=== PATIENT | female | born 1945 | race Caucasian/White ===

== ENCOUNTER 2021-12-23 18:53 | Emergency (ER) | payer MEDICARE, SELFPAY ==
--- NOTE | ~2021-12-23 | XR_ITS ---
XR tibia fibula LT 2V DATE: 12/23/2021 19:22 INDICATION: Injury 3 days ago. Bruising and pain at posterior mid lower leg TECHNIQUE: AP and lateral views COMPARISON: 08/02/2018 left knee, left ankle FINDINGS: There is soft tissue irregularity along the posteromedial mid and lower leg and moderate sw elling of the left lower leg. There is osteopenia. No fracture or dislocation, periosteal reaction or bone destruction of the tibia or fibula is evident . Normal alignment at the knee and ankle joints. IMPRESSION: Moderate soft tissue swelling of the left lower leg Focal soft tissue irregularity along the posteromedial mid lower leg Osteopenia No fracture or dislocation or bone destruction Reviewed, dictated and finalized at location A.
--- NOTE | 2021-12-23 18:57 | ED.LOWEXIN ---
HPI - Extremity Injury (Lower) General Chief Complaint: Extremity Injury, Lower Stated Complaint: Left leg injury Time Seen by Provider: 12/23/21 18:57 Source: patient and RN notes reviewed History of Present Illness HPI Narrative: Patient is 76-year-old female who presents the urgent care with her daughter with complaints of left leg injury. Patient states that on Wednesday she dropped a large TV on her left lower leg hitting her calf and ankle. Patient states that the pain and swelling seem to go down. However today she drove 12 hours to [place] and back with her leg hanging down. Patient states that now she has had increased pain and swelling. Patient is on a blood thinner but denies of any history of DVT. Patient states that she now has a blister to the area as well. Denies of any shortness of breath or chest pain. Patient has been ambulating with increased pain on the leg. No other acute injuries from the incident. No acute distress noted. Patient read the plan of care. Some parts of this dictation were generated by voice recognition software and may contain typographical and/or grammatical inaccuracies. Related Data Home Medications Medication Instructions Recorded Confirmed atorvastatin 40 mg PO DAILY 12/23/21 12/23/21 clopidogrel [Plavix] 75 mg PO DAILY 12/23/21 12/23/21 furosemide 20 mg PO DAILY 12/23/21 12/23/21 levothyroxine 88 mcg PO DAILY 12/23/21 12/23/21 oxybutynin chloride 10 mg PO DAILY 12/23/21 12/23/21 pantoprazole 40 mg PO HS 12/23/21 12/23/21 spironolactone 25 mg PO DAILY 12/23/21 12/23/21 trazodone 50 mg PO HS 12/23/21 12/23/21 Allergies Allergy/AdvReac Type Severity Reaction Status Date / Time codeine AdvReac Unknown Nausea and Verified 12/23/21 19:08 Vomiting Review of Systems Review of Systems: CONSTITUTIONAL: Denies fever, chills, or sweats. EYES: Denies visual changes, redness, or discharge. ENT: Denies rhinorrhea, congestion, sore throat, or otalgia. CARDIOVASCULAR: Denies chest pain, palpitations, or edema. RESPIRATORY: Denies cough or dyspnea. GASTROINTESTINAL: Denies abdominal pain, nausea, vomiting, or diarrhea. GENITOURINARY: Denies dysuria or hematuria. SKIN: Denies rash or itching. MUSCULOSKELETAL: Reports of left lower leg pain and swelling extending to the ankle NEUROLOGIC: Denies headache, numbness, or weakness. All other systems reviewed are negative, except as documented in HPI. PMFSH Comments At the time of my signature, I reviewed and agree with the nursing past medical, surgical, social, and family history. There is no relevant family history pertinent to the patient complaint. Exam Narrative: GENERAL: This is a well-nourished, well-developed patient, in no apparent distress. HEAD: normocephalic, atraumatic. EYES: PERRL. Sclera clear/white. Vision is grossly intact. EARS: External ears normal NOSE: External nose normal with no obvious nasal discharge, nares without redness, no rhinorrhea. THROAT: Mucous membranes moist NECK: Neck supple SKIN: 5 x 5 cm fluid-filled blister noted to the medial aspect of the left calf; (2) 1 cm fluid-filled blister noted to the medial aspect of the left calf NEURO: awake, alert, and oriented to person, place and time. There were no obvious focal neurologic abnormalities. EXTREMITIES: 30 cm ecchymosis in length extending from the left ankle to the left calf covering the full circumference of the left leg. 3+ left lower leg edema. Range of motion to left lower extremity within normal limits with exacerbated pain on flexion of the left ankle. Positive strong left pedal pulse with capillary refill less than 2 seconds. Unable to appropriately evaluate Homans' sign due to pain Course Course Level of Care: Express Care Visit Vital Signs Vital signs: Vital Signs Temperature 98 F 12/23/21 19:06 Pulse Rate 101 H 12/23/21 19:06 Respiratory Rate 16 12/23/21 19:06 Blood Pressure 142/63 H 12/23/21 19:06 Pulse Oximetry 100 12/23/21
[2021-12-23 19:06] VITALS: BP 142/63; PULSE 101; RESP 16; TEMP 36.6; O2SAT 100
[2021-12-23 19:11] VITALS: BP 142/63; PULSE 101; RESP 16; TEMP 36.6; O2SAT 100
== END 2021-12-23 19:40 | disposition home or self-care (01) ==
PROVIDERS: Emergency Provider Nurse Practitioner Family
DX: S80.822A Blister (nonthermal), left lower leg, initial encounter (principal); X58.XXXA Exposure to other specified factors, initial encounter; Z91.89 Other specified personal risk factors, not elsewhere classified; S80.12XA Contusion of left lower leg, initial encounter; W20.8XXA Other cause of strike by thrown, projected or falling object, initial encounter; I25.10 Atherosclerotic heart disease of native coronary artery without angina pectoris; Z95.5 Presence of coronary angioplasty implant and graft; E78.00 Pure hypercholesterolemia, unspecified; K21.9 Gastro-esophageal reflux disease without esophagitis; E89.0 Postprocedural hypothyroidism; Z79.01 Long term (current) use of anticoagulants
CPT/HCPCS: 73590; 99203; G0463

== ENCOUNTER 2022-01-08 18:06 | Emergency (ER) | payer MEDICARE, SELFPAY | END 2022-01-08 18:16 | disposition left against medical advice (07) | PROVIDERS: Emergency Provider Nurse Practitioner Family | DX: Z53.21 Procedure and treatment not carried out due to patient leaving prior to being seen by health care provider (principal) | CPT/HCPCS: 99199 ==